=== PATIENT | female | born 2000 | race African-American/Black ===

== ENCOUNTER → 2021-05-19 | Outpatient (CLI) | payer OTHER ==
--- NOTE | 2021-05-19 13:07 | Diagnostic Imaging Report ---
Indication: Back injury and numbness. TIME OF EXAM: 12:58 PM Curvature and alignment of the thoracic spine is normal. Vertebral body heights are maintained. No compression fracture seen. The pedicles and paraspinous line are intact. IMPRESSION: No acute abnormalities detected. Dictated by: Dictated on workstation # [id number]
== END ==
LOC: RAD 12:29
PROVIDERS: ATTEND Physician Assistant
DX: S24.109A Unspecified injury at unspecified level of thoracic spinal cord, initial encounter (principal); X58.XXXA Exposure to other specified factors, initial encounter
CPT/HCPCS: 72072

== ENCOUNTER 2021-09-17 19:56 | Emergency (ER) | payer OTHER ==
[~2021-09-17] VITALS: Ht 170 cm; Wt 63.5 kg
[2021-09-17] MEDS ORDERED: ACETAMINOPHEN 325 MG TABLET PO STA (20:21)
--- NOTE | 2021-09-17 20:51 | ED Integumentary General ---
General Chief Complaint: Bite-Animal/Human/Insect Stated Complaint: DOG BITE ON BUTTOCK Nursing Triage Note: PT AMB TO [facility] 5 WITH FRIEND WITH C/O BEING BITEN ON THE RIGHT BUTT CHEEK BY A WELSH ZAVALA DOG AROUND 1930 WHILE WALKING HOME FROM GETTING GROCERIES. (DAVID JASMINE) History of Present Illness Date Seen by Provider: Sep 17, 2021 Time Seen by Provider: 20:08 Initial Comments 20 year old female presents for dog bit to right buttocks prior to arrival. She was walking home alone with groceries, on [facility], when 2 dogs came running towards her. The Romanian Zavala bit her, the other dog was running around. Then they both ran off. It tore her pants. Police have not been notified and will come to take a report from patient. Patient reports last tetanus vaccine within 5 years. Timing/Duration: just prior to arrival Location: torso (right buttocks) Possible Cause: other (dog) Associated Symptoms: other (abrasion to right buttock from dog bite) (DAVID JASMINE) Allergies and Home Medications Allergies Coded Allergies: No Known Drug Allergies (Unverified , 09/17/21) Patient Home Medication List Home Medication List Reviewed: Yes (DAVID JASMINE) Amoxicillin/Potassium Clav (Amox Tr-K Clv 875-125 mg Tab) 1 Each Tablet, 1 EACH PO BID Prescribed by: DAVID JASMINE on 09/17/212057 Review of Systems Review of Systems Constitutional: no symptoms reported, see HPI Skin: see HPI, other (abrasion to skin) (DAVID JASMINE) All Other Systems Reviewed Negative Unless Noted: Yes (DAVID JASMINE) Past Ndhxoav-Ikezsc-Owmjgs Hx Patient Social History Tobacco Use?: No Use of E-Cig and/or Vaping dev: No Substance use?: No Alcohol Use?: No Pt feels they are or have been: No (DAVID JASMINE) Immunizations Up To Date First/Initial COVID19 Vaccinat: 2020 Second COVID19 Vaccination [place]: 2020 COVID19 Vaccine District Traffic Chief: [place] (DAVID JASMINE) Past Medical History Last Menstrual Period: Sep 16, 2021 (DAVID JASMINE) Family Medical History Reviewed Nursing Family Hx (DAVID JASMINE) Physical Exam Vital Signs Vital Signs - First Documented 09/17/21 20:08 Temp 36.6 Pulse 100 Resp 18 B/P (MAP) 123/75 (91) (MARCIAGEOVANI Jomar MACHADO) Vital Signs Capillary Refill : (DAVID JASMINE) General Appearance: WD/WN, no apparent distress Cardiovascular: normal peripheral pulses, regular rate, rhythm, no edema Respiratory: chest non-tender, lungs clear, normal breath sounds Skin: normal color, warm/dry Skin Problem Location: torso Skin Problem Character: tenderness, other (3.5 cm abrasion to right buttocks, superficial. No active bleeding. ) (DAVID JASMINE) Progress/Results/Core Measures Results/Orders Vital Signs/I&O 09/17/21 09/17/21 20:08 21:15 Temp 36.6 36.6 Pulse 100 90 Resp 18 18 B/P (MAP) 123/75 (91) 120/74 (MARCIAGEOVANI Jomar DO) Blood Pressure Mean: 91 Progress Progress Note : Time: 20:08 Progress Note patient seen and evaluated. Wound cleaned with Hibiclens and 500 mL of sterile saline. Triple antibiotic ointment and Band-Aid applied. [facility] here to take report. 2029 patient declines starting Rabies vaccine, risks vs benefits of rabies discussed. She will contact law enforcement and animal control tomorrow, to see if dog was found and rabies vaccine status is determined. Discharge instructions and return precautions reviewed. (DAVID JASMINE) Departure Impression Primary Impression: Dog bite Qualified Codes: W54.0XXA - Bitten by dog, initial encounter Additional Impression: Wound of right buttock Qualified Codes: S31.819A - Unspecified open wound of right buttock, initial encounter Disposition: 01 HOME, SELF-CARE Condition: Improved Departure-Patient Inst. Decision time for Depature: 20:30 (DAVID JASMINE) Referrals: [facility] [place] [facility],LOCAL PHYSICIAN (PCP) Primary Care Physician Patient Instructions: Animal Bites (DC) Add. Discharge Instructions: Keep wound clean and dry, clean with soap and water when showering and then rinse with peroxide after. Apply antibiotic ointment to it 3 times daily. Take antibiotics as prescribed. Ice pack to wound for 20 minutes every hour to to prevent swelling. Alternate between Tylenol 650 mg and ibuprofen 600 mg every 4 hours for pain. Activity as tolerated. Establish care at [facility] and follow-up for wound care. Watch for infection: Redness, discolored or foul-smelling drainage, increased pain, or fever Return to the emergency department for new, urgent healthcare problems. Contact animal control or [place] Police, to see if dog has been located. If you decide to pursue rabies vaccine, return to the emergency dept. All discharge instructions reviewed with patient and/or family. Voiced unders tanding. Scripts Amoxicillin/Potassium Clav (Amox Tr-K Clv 875-125 mg Tab) 1 Each Tablet 1 EACH PO BID, #20 TAB 0 Refills Prov: DAVID JASMINE 09/17/21 ATTENDING PHYSICIAN NOTE: I WAS PHYSICALLY PRESENT ER PHYSICIAN, BUT I WAS NOT INVOLVED IN ANY DECISION MAKING OR ANY CARE OF THIS PATIENT. (GEOVANI KENNEDY DO) DAVID JASMINE Sep 17, 2021 20:51 GEOVANI KENNEDY DO Sep 18, 2021 00:33
[2021-09-17] MEDS ORDERED: AMOX1TAB12 PO (20:58)
[2021-09-17] MEDS ORDERED: AUGMENTIN 875 MG TAB (AMOXICILLIN/CLAVULANATE) PO STA (21:00)
[2021-09-17] MEDS ORDERED: RX-MUPIROCIN (BACTROBAN) 2% OINT 22 GM TUBE TOP STA (21:00)
[2021-09-17 21:15] VITALS: BP 120/74
== END 2021-09-17 21:16 | disposition home or self-care (01) ==
LOC: EDUNIT# 19:56 → ER 19:58
DX: S31.815A Open bite of right buttock, initial encounter (principal); W54.0XXA Bitten by dog, initial encounter; Y93.01 Activity, walking, marching and hiking; Y92.410 Unspecified street and highway as the place of occurrence of the external cause
CPT/HCPCS: 99283

== ENCOUNTER 2021-09-18 11:58 | Emergency (ER) | payer OTHER ==
[~2021-09-18] VITALS: Ht 170 cm; Wt 63.5 kg
[~2021-09-18 11:58] MED LIST: AMOX1TAB12 PO
--- NOTE | 2021-09-18 12:27 | ED General ---
General Chief Complaint: General Problems/Pain Stated Complaint: RABIES SHOT - BIT BY DOG Nursing Triage Note: PT HERE FOR RABIES VACCINE. STATES SHE WAS OFFERED ONE YESTERDAY IN ED FOR A DOG BITE TO HER BUTTOCK BUT DECLINED THEN. Source of Information: Patient Exam Limitations: No Limitations History of Present Illness Date Seen by Provider: Sep 18, 2021 Time Seen by Provider: 12:24 Initial Comments To ER for rabies vaccine. She was bitten by a random dog yesterday on the buttock, was offered the vaccine but declined yesterday. Today she has decided that she would like to get the rabies vaccine. The dogs have been unable to be identified or found. She did receive a tetanus shot she states about 30 minutes ago on her right shoulder. She is on Augmentin infection prophylaxis. Timing/Duration: 1-2 Days Severity: Moderate Associated Systoms: Denies Symptoms Allergies and Home Medications Allergies Coded Allergies: No Known Drug Allergies (Unverified , 09/17/21) Patient Home Medication List Home Medication List Reviewed: Yes Amoxicillin/Potassium Clav (Amox Tr-K Clv 875-125 mg Tab) 1 Each Tablet, 1 EACH PO BID Prescribed by: DAVID JASMINE on 09/17/212057 Review of Systems Review of Systems Constitutional: see HPI EENTM: see HPI Respiratory: no symptoms reported Cardiovascular: no symptoms reported Genitourinary: no symptoms reported Musculoskeletal: no symptoms reported Skin: no symptoms reported Psychiatric/Neurological: No Symptoms Reported Past Ncoozpi-Tbdxup-Dwxypd Hx Patient Social History Tobacco Use?: No Substance use?: No Alcohol Use?: Yes Alcohol Frequency: Once in a while Pt feels they are or have been: No Immunizations Up To Date First/Initial COVID19 Vaccinat: 2020 Second COVID19 Vaccination [place]: 2020 Third COVID19 Vaccination Date: 2020 Past Medical History Last Menstrual Period: Sep 18, 2021 Physical Exam Vital Signs Vital Signs - First Documented 09/18/21 12:14 Temp 36.8 Pulse 100 Resp 18 B/P (MAP) 106/75 (85) Pulse Ox 99 Capillary Refill : Less Than 3 Seconds Height, Weight, BMI Height: '" Weight: lbs. oz. kg; 21.00 BMI Method: General Appearance: No Apparent Distress, WD/WN Eyes: Bilateral Eye Normal Inspection, Bilateral Eye PERRL HEENT: PERRL/EOMI, TMs Normal Neck: Full Range of Motion, Normal Inspection Respiratory: No Accessory Muscle Use, No Respiratory Distress Cardiovascular: Regular Rate, Rhythm, Normal Peripheral Pulses Gastrointestinal: Normal Bowel Sounds, Non Tender, Soft Extremity: Normal Capillary Refill, Normal Inspection Neurologic/Psychiatric: Alert, Oriented x3 Skin: Normal Color, Warm/Dry Progress/Results/Core Measures Suspected Sepsis SIRS Temperature: Pulse: 100 Respiratory Rate: 18 Blood Pressure 106 /75 Mean: 85 Results/Orders My Orders Orders - SUKHWINDER CARBAJAL APRN Rabies Vaccine Human Dipl Cell (Rabavert (09/18/21 12:30) Rabies Immune Globulin/Pf 10ml (Kedrab 1 (09/18/21 12:30) Medications Given in ED Current Medications Medications Dose Ordered Sig/Malik Route Start Time Stop Time Status Last Admin Dose Admin Rabies Vaccine Human Diploid Cell 1 ml ONCE ONCE IM 09/18/21 12:30 09/18/21 12:31 DC 09/18/21 12:36 1 ML Vital Signs/I&O 09/18/21 12:14 Temp 36.8 Pulse 100 Resp 18 B/P (MAP) 106/75 (85) Pulse Ox 99 Capillary Refill : Less Than 3 Seconds Blood Pressure Mean: 85 Departure Communication (Admissions) 1239-I infiltrated 1260 international units of rabies immunoglobulin around the bite site to the right inferior buttock.. At 150 or national units per mL this totaled 8.4 mL. Patient tolerated well. Impression Primary Impression: Dog bite Disposition: HOME, SELF-CARE Condition: Stable Departure-Patient Inst. Decision time for Depature: 12:25 Referrals: NO,LOCAL PHYSICIAN (PCP/Family) Primary Care Physician Patient Instructions: Animal Bites (DC) Add. Discharge Instructions: 1. Continue the antibiotics. Return to the hospital outpatient department (show up at the emergency room and they can direct you where to go) for additional rabies vaccines on 09/21/2021, 09/25/2021, 10/02/2021 and 10/16/2021. All discharge instructions reviewed with patient and/or family. Voiced understanding. SUKHWINDER CARBAJAL APRN Sep 18, 2021 12:27
[2021-09-18] MEDS ORDERED: RABIES VACCINE HUMAN DIPL CELL 1 ML/2.5 UNITS SYR IM ONE (12:30)
[2021-09-18] MEDS ORDERED: RABIES IMMUNE GLOBULIN (KEDRAB) 1,500 UNITS/10 ML IM ONE (12:30)
[2021-09-18 12:55] VITALS: BP 106/75
== END 2021-09-18 12:55 | disposition home or self-care (01) ==
LOC: EDUNIT# 11:58 → ER 12:00
DX: S31.815A Open bite of right buttock, initial encounter (principal); Z23 Encounter for immunization; W54.0XXA Bitten by dog, initial encounter
CPT/HCPCS: 90675; 90676; 99284

== ENCOUNTER 2021-10-02 15:05 | Outpatient (RCR) | payer OTHER ==
[2021-09-21 14:00] VITALS: BP 102/75
[2021-09-25 11:50] VITALS: BP 109/75
[~2021-10-02 15:05] MED LIST changes: +RABIES VACCINE HUMAN DIPL CELL 1 ML/2.5 UNITS SYR INJ ONE
[2021-10-02 15:16] VITALS: BP 114/73
[2021-10-16] MEDS ORDERED: RABIES VACCINE HUMAN DIPL CELL 1 ML/2.5 UNITS SYR INJ ONE (14:15)
== END 2021-10-14 | disposition home or self-care (01) ==
LOC: SDC 15:05
PROVIDERS: ATTEND Emergency Medicine
DX: Z23 Encounter for immunization (principal); W54.0XXA Bitten by dog, initial encounter
CPT/HCPCS: 90471; 90675

== ENCOUNTER 2021-10-16 15:50 | Outpatient (RCR) | payer OTHER ==
[~2021-10-16] VITALS: Ht 170 cm; Wt 63.5 kg
[~2021-10-16 15:50] MED LIST changes: -RABIES VACCINE HUMAN DIPL CELL 1 ML/2.5 UNITS SYR INJ ONE
[2021-10-16 16:15] VITALS: BP 117/70
[2021-10-16] MEDS ORDERED: RABIES VACCINE HUMAN DIPL CELL 1 ML/2.5 UNITS SYR INJ ONE (16:15)
== END 2021-10-16 16:16 | disposition home or self-care (01) ==
LOC: SDC 15:50
PROVIDERS: ATTEND Nurse Practitioner Family
DX: Z23 Encounter for immunization (principal); W54.0XXA Bitten by dog, initial encounter
CPT/HCPCS: 90675; 96372

== ENCOUNTER 2021-11-19 09:49 | Emergency (ER) | payer OTHER ==
[~2021-11-19] VITALS: Ht 170 cm; Wt 68.0 kg
[2021-11-19 10:29] LABS: BILIRUBIN,URINE NEGATIVE (NEGATIVE); CLARITY,URINE CLEAR; COLOR,URINE YELLOW; GLUCOSE, URINE (UA) NEGATIVE (NEGATIVE); KETONES,URINE NEGATIVE (NEGATIVE); LEUKOCYTE ESTERASE ,URINE NEGATIVE (NEGATIVE); NITRITE,URINE NEGATIVE (NEGATIVE); PROTEIN,URINE NEGATIVE (NEGATIVE)
[2021-11-19 10:37] LABS: BACTERIA,URINE NEGATIVE /HPF; SQUAMOUS EPITHELIAL CELL,UR RARE /HPF
[2021-11-19] MEDS ORDERED: fentaNYL INJ 100 MCG/2 ML AMP IVP ONE (11:00)
[2021-11-19] MEDS ORDERED: NS IV 1000 ML 1,000 ML IV SCH (11:00)
[2021-11-19] MEDS ORDERED: KETOROLAC 30 MG/ML VIAL IVP ONE (11:00)
[2021-11-19 11:01] LABS: BASOPHILS # (AUTO) 0.1 10^3/uL (0.0-0.1); BASOPHILS % (AUTO) 1 % (0-10); EOSINOPHILS # (AUTO) 0.1 10^3/uL (0.0-0.3); EOSINOPHILS % (AUTO) 2 % (0-10); HEMATOCRIT 45 % (35-52); HEMOGLOBIN 14.8 g/dL (11.5-16.0); LYMPHOCYTES # (AUTO) 1.8 10^3/uL (1.0-4.0); LYMPHOCYTES % (AUTO) 32 % (12-44); MEAN CORPUSCULAR HEMOGLOBIN 28 pg (25-34); MEAN CORPUSCULAR HGB CONC 33 g/dL (32-36); MEAN CORPUSCULAR VOLUME 84 fL (80-99); MEAN PLATELET VOLUME 8.9 fL (9.0-12.2); MONOCYTES # (AUTO) 0.5 10^3/uL (0.0-1.0); MONOCYTES % (AUTO) 9 % (0-12); NEUTROPHILS # (AUTO) 3.1 10^3/uL (1.8-7.8); NEUTROPHILS % (AUTO) 56 % (42-75); PLATELET COUNT 220 10^3/uL (130-400); WHITE BLOOD COUNT 5.5 10^3/uL (4.3-11.0)
--- NOTE | 2021-11-19 11:24 | Diagnostic Imaging Report ---
EXAMINATION: CT abdomen and pelvis without contrast. TECHNIQUE: Multiple contiguous axial images were obtained through the abdomen and pelvis without the use of intravenous contrast. All CT scans use one or more of the following dose optimizing techniques: automated exposure control, MA and/or KvP adjustment based on patient size and exam type or iterative reconstruction. HISTORY: Flank pain COMPARISON: None available. FINDINGS: Limited views of the lower thorax are unremarkable. The liver is normal without focal lesion. There is no biliary ductal dilation. Gallbladder is normal. Pancreas is normal. Spleen is normal. Adrenal glands are normal. There is a 2 mm right ureterovesical junction stone with mild right-sided hydroureteronephrosis. Urinary bladder is normal. Bowel is normal in caliber without obstruction or inflammation. No free fluid or air. No abdominal or pelvic lymphadenopathy. Aorta is normal in caliber without aneurysm. There are no suspicious osseus lesions. IMPRESSION: 1. Right ureterovesical junction stone measuring 2 mm with mild right hydroureteronephrosis. Dictated by: Dictated on workstation # [id number]
[2021-11-19 11:44] LABS: POTASSIUM 4.1 MMOL/L (3.6-5.0)
[2021-11-19 11:45] LABS: CALCIUM 9.2 MG/DL (8.5-10.1)
[2021-11-19 11:49] LABS: CREATININE SERUM 0.75 MG/DL (0.60-1.30)
--- NOTE | 2021-11-19 12:21 | ED Abdominal Pain ---
General Chief Complaint: Abdominal/GI Problems Stated Complaint: STOMACH CRAMPS Nursing Triage Note: PT STATES LOW MID ABD PAIN THAT STARTED ABOUT 0800. NORMAL WHEN SHE WENT TO BED. PAINFUL URINATION, NORMAL BM TODAY, DENIES NAUSEA/VOMITING NOW DID VOMIT A FEW DAYS AGO. HAS HAD UTI'S IN THE PAST. Source of Information: Patient Exam Limitations: No Limitations History of Present Illness Date Seen by Provider: Nov 19, 2021 Time Seen by Provider: 10:30 Initial Comments Patient is a 21-year-old female who presents to the emergency department today with a chief complaint of low abdominal pain, right-sided abdominal pain onset when she woke up at about 8 AM this morning. Patient had no symptoms when she went to bed last night. She states she is trying to urinate but really cannot, she does feel the urge to urinate. She denies any abnormal vaginal discharge. Her last menstrual cycle was 2 weeks ago. She did have a bowel movement this morning. Nonblack nonbloody. She is not having any nausea or vomiting. She states the pain was a "10" at onset currently rates it at a "7". She has not taken anything for the pain. No burning with urination, no shortness of breath or URI symptoms. No rashes. No injuries. She has never had pain like this before. She has never been . ED bedside test is negative. All other review of systems reviewed and negative except as stated. Timing/Duration: 1-3 Hours Severity/Quality: Severe, Aching, Cramping ("like bad period cramps") Radiation: No Radiation Activities at Onset: Sleeping Associated Symptoms: Back Pain Allergies and Home Medications Allergies Coded Allergies: No Known Drug Allergies (Unverified , 09/17/21) Patient Home Medication List Home Medication List Reviewed: Yes Amoxicillin/Potassium Clav (Amox Tr-K Clv 875-125 mg Tab) 1 Each Tablet, 1 EACH PO BID Prescribed by: DAVID JASMINE on 09/17/212057 Review of Systems Review of Systems Constitutional: see HPI EENTM: No Symptoms Reported Respiratory: No Symptoms Reported Cardiovascular: No Symptoms Reported Gastrointestinal: No Symptoms Reported Genitourinary: Urgency Musculoskeletal: back pain (right low back) Skin: no symptoms reported Psychiatric/Neurological: No Symptoms Reported All Other Systems Reviewed Negative Unless Noted: Yes Past Qvefnrg-Ofzosj-Tjuaet Hx Patient Social History Tobacco Use?: No Use of E-Cig and/or Vaping dev: No Substance use?: No Alcohol Use?: No Immunizations Up To Date First/Initial COVID19 Vaccinat: 2020 Second COVID19 Vaccination [place]: 2020 Third COVID19 Vaccination Date: 2020 COVID19 Vaccine Emergency Nurse: FERNANDO Past Medical History Surgery/Hospitalization HX: T&A Last Menstrual Period: November 05, 2021 Physical Exam Vital Signs Vital Signs - First Documented 11/19/21 10:00 Temp 36.3 Pulse 77 Resp 20 B/P (MAP) 116/72 (87) Pulse Ox 100 O2 Delivery Room Air Capillary Refill : Less Than 3 Seconds Height/Weight/BMI Height: '" Weight: lbs. oz. kg; 23.00 BMI Method: General Appearance: WD/WN, mild distress (slightly tearful with exam) HEENT: PERRL/EOMI Respiratory: lungs clear, normal breath sounds, no respiratory distress, no accessory muscle use Cardiovascular: regular rate, rhythm Gastrointestinal: normal bowel sounds, soft, tenderness (suprapubic and RLQ abdominal pain; + rebound (mild); + psoas (mild); + heel tap (mild)) Extremities: normal range of motion, non-tender, normal inspection, no pedal edema, no calf tenderness Back: normal inspection, CVA tenderness (R) Neurologic/Psychiatric: surveyor helper II-XII nml as tested, no motor/sensory deficits, alert, normal mood/affect, oriented x 3 Skin: normal color, warm/dry Progress/Results/Core Measures Results/Orders Lab Results Laboratory Tests Test 11/19/21 09:55 11/19/21 10:50 11/19/21 11:20 Range/Units Urine Color YELLOW Urine Clarity CLEAR Urine pH 6.0 5-9 Urine Specific [place] <=1.005 1.016-1.022 Urine Protein NEGATIVE NEGATIVE Urine Glucose (UA) NEGATIVE NEGATIVE Urine Ketones NEGATIVE NEGATIVE Urine Nitrite NEGATIVE NEGATIVE Urine Bilirubin NEGATIVE NEGATIVE Urine Urobilinogen 0.2 < = 1.0 MG/DL Urine Leukocyte Esterase NEGATIVE NEGATIVE Urine RBC (Auto) 2+ H NEGATIVE Urine RBC 2-5 H /HPF Urine WBC NONE /HPF Urine Squamous Epithelial Cells RARE /HPF Urine Crystals NONE /LPF Urine Bacteria NEGATIVE /HPF Urine Casts NONE /LPF Urine Mucus NEGATIVE /LPF Urine Culture Indicated NO White Blood Count 5.5 4.3-11.0 10^3/uL Red Blood Count 5.32 H 3.80-5.11 10^6/uL Hemoglobin 14.8 11.5-16.0 g/dL Hematocrit 45 35-52 % Mean Corpuscular Volume 84 80-99 fL Mean Corpuscular Hemoglobin 28 25-34 pg Mean Corpuscular Hemoglobin Concent 33 32-36 g/dL Red Cell Distribution Width 12.8 10.0-14.5 % Platelet Count 220 130-400 10^3/uL Mean Platelet Volume 8.9 L 9.0-12.2 fL Immature Granulocyte % (Auto) 0 % Neutrophils (%) (Auto) 56 42-75 % Lymphocytes (%) (Auto) 32 12-44 % Monocytes (%) (Auto) 9 0-12 % Eosinophils (%) (Auto) 2 0-10 % Basophils (%) (Auto) 1 0-10 % Neutrophils # (Auto) 3.1 1.8-7.8 10^3/uL Lymphocytes # (Auto) 1.8 1.0-4.0 10^3/uL Monocytes # (Auto) 0.5 0.0-1.0 10^3/uL Eosinophils # (Auto) 0.1 0.0-0.3 10^3/uL Basophils # (Auto) 0.1 0.0-0.1 10^3/uL Immature Granulocyte # (Auto) 0.0 0.0-0.1 10^3/uL Sodium Level 140 135-145 MMOL/L Potassium Level 4.1 3.6-5.0 MMOL/L Chloride Level 107 98-107 MMOL/L Carbon Dioxide Level 23 21-32 MMOL/L Anion Gap 10 5-14 MMOL/L Blood Urea Nitrogen 9 7-18 MG/DL Creatinine 0.75 0.60-1.30 MG/DL Estimat Glomerular Filtration Rate 117 BUN/Creatinine Ratio 12 Glucose Level 83 70-105 MG/DL Calcium Level 9.2 8.5-10.1 MG/DL My Orders Orders - NORMA CRUZ MD Ua Culture If Indicated (11/19/21 10:18) Urine Bedside (11/19/21 10:18) Ed Iv/Invasive Line Start (11/19/21 10:51) Cbc With Automated Diff (11/19/21 10:51) Basic Metabolic Panel (11/19/21 10:51) Ketorolac Injection (Toradol Injection) (11/19/21 11:00) Fentanyl Inj (Sublimaze Injection) (11/19/21 11:00) Ns Iv 1000 Ml (Sodium Chloride 0.9%) (11/19/21 11:00) Ct Abd/Pelvis Wo(Kidney Stone) (11/19/21 10:51) Medications Given in ED Current Medications Medications Dose Ordered Sig/Malik Route Start Time Stop Time Status Last Admin Dose Admin Fentanyl Citrate 25 mcg ONCE ONCE IVP 11/19/21 11:00 11/19/21 11:01 DC 11/19/21 11:02 25 MCG Ketorolac Tromethamine 15 mg ONCE ONCE IVP 11/19/21 11:00 11/19/21 11:01 DC 11/19/21 11:02 15 MG Vital Signs/I&O 11/19/21 11/19/21 11/19/21 10:00 11:02 11:02 Temp 36.3 36.3 36.3 Pulse 77 Resp 20 B/P (MAP) 116/72 (87) Pulse Ox 100 O2 Delivery Room Air Blood Pressure Mean: 87 Progress Progress Note : Time: 12:20 Progress Note Patient reevaluated, resting comfortably, pain-free. We talked about kidney stone management, return precautions, medications for home. She declines any prescription pain or nausea medications at this time. I advised her if she develops a fever she needs to come back to the emergency department. We talked about brgu-ykz-tfxjebl medications to control her pain as well as aggressive fluid hydration. She did admit that she has been following a high-protein diet and drinking only about 24 ounces of water daily. I cautioned her on the high- protein diet and matching her water intake to her weight. She verbalized understanding. All questions are sought and answered Diagnostic Imaging Diagonstic Imaging: CT Comments [facility], [place] NAME: JOSEMANUEL THAKUR Yahaira [facility] REC#: [id number] PT STATUS: REG ER : 2000 PHYSICIAN: NORMA CRUZ MD ADMIT DATE: 11/19/21/ER Signed Date of Exam:11/19/21 CT ABD/PELVIS WO(KIDNEY STONE) EXAMINATION: CT abdomen and pelvis without contrast. TECHNIQUE: Multiple contiguous axial images were obtained through the abdomen and pelvis without the use of intravenous contrast. All CT scans use one or more of the following dose optimizing techniques: automated exposure control, MA and/or KvP adjustment based on patient size and exam type or iterative reconstruction. HISTORY: Flank pain COMPARISON: None available. FINDINGS: Limited views of the lower thorax are unremarkable. The liver is normal without focal lesion. There is no biliary ductal dilation. Gallbladder is normal. Pancreas is normal. Spleen is normal. Adrenal glands are normal. There is a 2 mm right ureterovesical junction stone with mild right-sided hydroureteronephrosis. Urinary bladder is normal. Bowel is normal in caliber without obstruction or inflammation. No free fluid or air. No abdominal or pelvic lymphadenopathy. Aorta is normal in caliber without aneurysm. There are no suspicious osseus lesions. IMPRESSION: 1. Right ureterovesical junction stone measuring 2 mm with mild right hydroureteronephrosis. Dictated by: Dictated on workstation # [id number] Dict: 11/19/21 1120 Trans: 11/19/21 1210 [facility] [id number] Interpreted by: NEEL MAGALLANES MD Electronically signed by: NEEL MAGALLANES MD 11/19/21 1210 Departure Impression Primary Impression: Kidney stone on right side Disposition: 01 HOME, SELF-CARE Condition: Improved Departure-Patient Inst. Decision time for Depature: 12:27 Referrals: [facility],LOCAL PHYSICIAN (PCP) Primary Care Physician Patient Instructions: Kidney Stone, Adult ED Add. Discharge Instructions: Drink lots of water to stay well-hydrated. You need to be drinking 1 ounce per kilogram of body weight daily. Take dwba-hrx-yaoquhn Aleve, 2 pills in the morning and 2 pills at night for pain. You should also take tlxj-uwh-ozklfcs Pepcid morning and night while you are taking the Aleve to help prevent heartburn. If you have worsening pain especially with nausea and vomiting or fever please come back to the emergency department for reevaluation. You should strain your urine with the strainer provided so that we can see the stone when it passes. You may miss it and that is okay. Follow-up with your primary care physician as needed. NORMA CRUZ MD Nov 19, 2021 12:21
[2021-11-19 12:42] VITALS: BP 122/73
== END 2021-11-19 12:42 | disposition home or self-care (01) ==
LOC: EDUNIT# 09:49 → ER 09:51
DX: N13.2 Hydronephrosis with renal and ureteral calculous obstruction (principal)
CPT/HCPCS: 36415; 74176; 80048; 81000; 84703; 85025